=== PATIENT | male | born 1965 | race African-American/Black ===

== ENCOUNTER 2018-03-23 06:57 | Emergency (ER) | payer BC, OTHER ==
[2018-03-23 07:31] VITALS: BMI 27.4
[2018-03-23] MEDS ORDERED: IBUPROFEN 600 MG TABLET (FP) PO ONE ×2 (07:38→07:47)
[2018-03-23] MEDS ORDERED: POLYETHYLENE GLYCOL 3350 119 GM BTL PO ONE (07:38)
[2018-03-23] MEDS ORDERED: RANITIDINE HCL 150 MG TABLET (FP) PO ONE (07:51)
[2018-03-23] MEDS ORDERED: MAG HYDROX/AL HYDROX/SIMETH 30 ML UNIT-DOSE CUP PO ONE (07:51)
[2018-03-23] MEDS ORDERED: MAG HYDROX/AL HYDROX/SIMETH 30 ML UNIT-DOSE CUP ONE (07:54)
[2018-03-23] MEDS ORDERED: RANITIDINE HCL 150 MG TABLET (FP) ONE (07:54)
--- NOTE | 2018-03-23 07:56 | PDOC ---
History of Present Illness - General Chief Complaint: Back Pain Stated Complaint: BACK PAIN/BOWEL PROBLEMS Time Seen by Provider: 03/23/18 07:40 History Source: Patient Exam Limitations: No Limitations - History of Present Illness Initial Comments: 03/23/18 07:56 This is a 52 YOM with unremarkable PMH who p/w fluctuating low back pain, intermittent epigastric abdominal discomfort, constipation, and nausea worsening over the past 2 weeks. His back pain fluctuates and is worse at night , and is located along the entire low back (both sides and midline) and radiates around mildly to his RLQ and LLU. This pain improves when he has a larger bowel movement and worsens as time passes without BM. His last BM was very small and a bit liquidy and was this morning and brown-colored. He denies f /c, d/c, n/t/w, chest pain, SOB, headache, dizziness, or other symptoms. He has not taken medications for his symptoms for several days. He has not struggled significantly with constipation prior to the past two weeks. Past History - Past Medical History Allergies/Adverse Reactions: Allergies Allergy/AdvReac Type Severity Reaction Status Date / Time No Known Allergies Allergy Verified 03/23/18 07:31 Home Medications: Ambulatory Orders NK [No Known Home Medication] 03/28/15 COPD: No - Suicide/Smoking/Psychosocial Hx Smoking History: Current every day smoker Have you smoked in the past 12 months: Yes Number of Cigarettes Smoked Daily: 6 Information on smoking cessation initiated: No 'Breaking Loose' booklet given: 11/09/15 Hx Alcohol Use: No Drug/Substance Use Hx: No Substance Use Type: None *Physical Exam - Vital Signs Last Vital Signs Temp Pulse Resp BP Pulse Ox 98.4 F 88 18 108/66 99 03/23/18 07:28 03/23/18 07:28 03/23/18 07:28 03/23/18 07:28 03/23/18 07:28 GENERAL: nontoxic and well-appearing, nourished, A/Ox4, no acute distress, speaking in full sentences, answers questions appropriately, does not appear particularly uncomfortable HEENT: PERRLA, EOMI, moist mucous membranes, no posterior pharyngeal erythema, no tonsillar swelling or exudates, no cervical lymphadenopathy NECK: No midline ttp, no spinal stepoff or deformity, full ROM, supple CARDIOVASCULAR: Regular rate and rhythm, normal S1S2, MGR, radial and DP pulses 2+ and symmetric, capillary refill <2 seconds, extremities warm and well- perfused LUNGS/RESPIRATORY: No respiratory distress, normal and symmetric chest movements during respirations, lungs CTA bilaterally, equal breath sounds, no cyanosis, no nail clubbing GI/ABDOMEN: Normal symmetric appearance, normoactive bowel sounds, soft, no tenderness to palpation, no midline pulsatile masses, no palpated organomegaly : No CVA tenderness BACK: No midline ttp or stepoff or deformity of thoracic or lumbar spine EXTREMITIES: distal pulses 2+, warm and well-perfused, no LE edema SKIN: Warm and dry, no pallor, no jaundice, no bruising, no rash, no skin breakdown, no cuts, no lesions NEUROLOGICAL: GCS 15, CN II-XII grossly intact, ambulating with normal gait, moving all extremities, 5/5 strength proximally and distally, no facial droop, no decreased sensation Heart Score/ECG Review #1 SR rate of 82, normal axis and intervals, early repol in [id number], no ischemic ST-T changes ED Treatment Course - LABORATORY CBC & Chemistry Diagram: 03/23/18 07:58 03/23/18 07:58 - Medications Given in the ED: ED Medications Discontinued Medications Generic Name Dose Route Start Last Admin Trade Name Stalinq PRN Reason Stop Dose Admin Ibuprofen 600 mg 03/23/18 07:38 03/23/18 07:49 Motrin - PO 03/23/18 07:39 600 mg ONCE ONE Administration Medical Decision Making - Medical Decision Making 03/23/18 07:52 Pt presents with low back pain, abdominal discomfort, constipation, nausea all x2 weeks. Has seen his PCP Dr. Johnson about this and has not gotten relief with laxatives and one other medication he cannot remember. Initial Vital Signs Temp Pulse Resp BP Pulse Ox 98.4 F 88 18 108/66 99 03/23/18 07:28 03/23/18 07:28 03/23/18 07:28 03/23/18 07:28 03/23/18 07:28 Exam: As noted in Physical Exam section.Abdomen distended DDX IBNLT: SBO, constipation, gas, ascites, GI perforation, abdominal compartment syndrome, colitis or diverticulitis wwo rupture or abscess, toxic megacolon, appendicitis wwo rupture, pancreatitis wwo abscess/pseudocyst (MC cause gallstones and EtOH; also hypercalcemia, neoplasm, medications, ERCP complication, abdominal surgery/instrumentation, trauma, SBP (asmita. w/ h/o cirrhosis/EtOH), AAA/AD wwo rupture, ischemic colitis wwo perforation (embolism , bowel obstruction, inadequate systemic perfusion, medications, surgery- induced vascular compromise), etc. Orders placed at this time: Provider Orders Category Date Time Status EKG [ELECTROCARDIOGRAM] [CARD] Stat Cardiology 03/23/18 07:53 Ordered EKG needed NOW Care 03/23/18 07:53 Ordered CBC WITH DIFFERENTIAL Stat Lab 03/23/18 07:39 Ordered CMP [COMP METABOLIC PANEL] Stat Lab 03/23/18 07:42 Ordered TSH [THYROID STIMULATING HORMONE] Stat Lab 03/23/18 07:39 Ordered Ibuprofen [Motrin -] Medication 03/23/18 07:47 Discontinued 600 mg PO .STK-MED ONE Ibuprofen [Motrin -] Medication 03/23/18 07:38 Discontinued 600 mg PO ONCE ONE Mag Hydrox/Al Hydrox/Simeth [Mylanta Oral Suspension -] Medication 03/23/18 07 :51 Once 30 ml PO ONCE ONE Polyethylene Glycol 3350 [Miralax (For Daily Use) -] Medication 03/23/18 07: 38 Discontinued 17 gm PO ONCE ONE Ranitidine [Zantac -] Medication 03/23/18 07:51 Once 300 mg PO ONCE ONE Sodium Phosphate/Na Biphos [Fleet Adult Rectal Enema -] Medication 03/23/18 07 :38 Discontinued 133 ml OK ONCE ONE Medications Discontinued Medications Generic Name Dose Route Start Last Admin Trade Name Freq PRN Reason Stop Dose Admin Al Hydroxide/Mg Hydroxide 30 ml 03/23/18 07:51 Mylanta Oral Suspension - PO 03/23/18 07:52 ONCE ONE Ibuprofen 600 mg 03/23/18 07:38 03/23/18 07:49 Motrin - PO 03/23/18 07:39 600 mg ONCE ONE Administration Ibuprofen Confirm 03/23/18 07:47 Motrin - Administered 03/23/18 07:48 Dose 600 mg PO .STK-MED ONE Polyethylene Glycol 17 gm 03/23/18 07:38 Miralax (For Daily Use) - PO 03/23/18 07:39 ONCE ONE Ranitidine HCl 300 mg 03/23/18 07:51 Zantac - PO 03/23/18 07:52 ONCE ONE Sodium Phosphate 133 ml 03/23/18 07:38 Fleet Adult Rectal Enema - OK 03/23/18 07:39 ONCE ONE Abdomen XR: Non-obstructive bowel gas pattern, no significant stool burden. EKG: Reviewed; as noted in ECG section. Laboratory Tests 03/23/18 03/23/18 03/23/18 07:58 07:58 10:55 WBC 5.6 RBC 4.99 Hgb 14.9 Hct 44.1 MCV 88.2 MCH 29.7 MCHC 33.7 RDW 13.6 Plt Count 205 MPV 8.7 Absolute Neuts (auto) 3.9 Neutrophils % 70.9 Lymphocytes % 16.2 D Monocytes % 9.7 Eosinophils % 2.6 D Basophils % 0.6 Nucleated RBC % 0 Sodium 142 Potassium 4.3 Chloride 107 Carbon Dioxide 27 Anion Gap 8 BUN 14 Creatinine 1.2 Creat Clearance w eGFR > 60 Random Glucose 76 Calcium 9.4 Total Bilirubin 0.3 AST 12 L ALT 26 Alkaline Phosphatase 69 Total Protein 7.2 Albumin 3.8 TSH 1.09 Stool Occult Blood Negative Reassessment: Repeat abdominal exam benign. Patient states feels improved and comfortable going home with f/u early this week with PCP. Vital Signs Temperature 98.7 F 03/23/18 10:34 Pulse Rate 89 03/23/18 10:34 Respiratory Rate 16 03/23/18 10:34 Blood Pressure 106/75 03/23/18 10:34 O2 Sat by Pulse Oximetry (%) 98 03/23/18 10:34 03/23/18 10:40 This patient has gotten significant relief of symptoms while in the ED. On last reassessment, vitals are wnl, pain is reasonably controlled, and exam is benign. Workup is not concerning for emergency-level pathology at this time. This patient is appropriate for discharge with close outpatient follow up. The Pt is comfortable with this plan and will follow up with their primary care provider in 1-3 days. He will take Motrin and/or Tylenol for pain. Specific return precautions are discussed and they will come back to the ER if necessary. 03/24/18 11:01 *DC/Admit/Observation/Transfer Diagnosis at time of Disposition: Back pain Qualifiers: Back pain location: low back pain Chronicity: acute Back pain laterality: bilateral Sciatica presence: without sciatica Qualified Code(s): M54.5 - Low back pain Constipation Qualifiers: Constipation type: unspecified constipation type Qualified Code(s): K59.00 - Constipation, unspecified - Discharge Dispostion Disposition: HOME Condition at time of disposition: Stable Decision to Admit order: No - Referrals Referrals: Shirin Johnson MD [Primary Care Provider] - Siddhartha Mg DO [Staff Physician] - - Patient Instructions Printed Discharge Instructions: DI for Low Back Pain, DI for Constipation Additional Instructions: YOU WERE SEEN IN THE ER FOR BACK PAIN. WE DID LABORATORY WORK ON YOUR BLOOD, WELL IMAGING STUDIES, AND WE DID NOT FIND ANY CONCERNING ABNORMALITIES. YOUR SYMPTOMS IMPROVED TO A TOLERABLE LEVEL WITH THE MEDICATIONS WE GAVE YOU IN THE ER. AFTER OUR ASSESSMENT, WE DO NOT BELIEVE YOU ARE HAVING A MEDICAL EMERGENCY AT THIS TIME, AND WE BELIEVE YOU ARE SAFE TO GO HOME. PLEASE FOLLOW UP WITH YOUR PRIMARY CARE PROVIDER IN 1-3 DAYS. CALL THEIR CLINIC SOON POSSIBLE, TELL THEM YOU WERE SEEN IN THE ER, AND TELL THEM YOU NEED AN APPOINTMENT. IF YOU HAVE ANY NEW OR WORSENING SYMPTOMS PLEASE COME BACK TO THE ER AT ANY TIME ( 24 HOURS A DAY), ESPECIALLY FOR FEVER, NEW NUMBNESS NEW TINGLING, NEW WEAKNESS, NEW URINARY OR BOWEL INCONTINENCE OR RETENTION, RECTAL BLEEDING, OR OTHER NEW SYMPTOMS. IF YOU ARE HAVING SEVERE OR LIFE THREATENING SYMPTOMS, OR SYMPTOMS THAT MAKE IT UNSAFE TO DRIVE OR HAVE SOMEONE DRIVE YOU, PLEASE CALL 911. FOR PAIN CONTROL BY ALTERNATING [id number] MEDICINES, DO THE FOLLOWING: At hour 0, take Tylenol 650 mg (two regular strength pills) At hour 3, take ibuprofen 600 mg (three regular strength pills) At hour 6, take Tylenol 650 mg (two regular strength pills) At hour 9, take ibuprofen 600 mg (three regular strength pills) Etc. ALSO PLEASE DO TAKE THE LAXATIVES IF YOU ARE NOT HAVING SUFFICIENT BOWEL MOVEMENTS. PLEASE TRY A TRIAL OF [id number] PRILOSEC BECAUSE IT ALSO SOUNDS LIKE YOU HAVE ACID REFLUX. TAKE A 20 MG PRILOSEC (OMEPRAZOLE) ONCE A DAY, AT THE SAME TIME EVERY DAY, 30 MINUTES BEFORE A MEAL. - Post Discharge Activity
[2018-03-23] MEDS: SODIUM PHOSPHATE/NA BIPHOS 133 ML ENEMA PR ONE ×2 (08:11→08:25)
[2018-03-23 08:16] LABS: BASO % 0.6 % (0-2.0); EOS % 2.6 % (0-4.5); HEMATOCRIT 44.1 % (35.4-49); HEMOGLOBIN 14.9 GM/dL (11.7-16.9); LYMPH % 16.2 % (8-40); MCH 29.7 pg (25.7-33.7); MCHC 33.7 g/dl (32.0-35.9); MEAN CELL VOLUME 88.2 fl (80-96); MEAN PLT VOLUME 8.7 fl (7.5-11.1); MONO % 9.7 % (3.8-10.2); NEUT % 70.9 % (42.8-82.8); PLATELET COUNT 205 K/MM3 (134-434); RBC 4.99 M/mm3 (4.00-5.60); RDW 13.6 % (11.9-15.9); WHITE BLOOD COUNT 5.6 K/mm3 (4.0-10.0)
[2018-03-23] MEDS ORDERED: MAGNESIUM CITRATE 300 ML BOTTLE PO ONE (08:24)
[2018-03-23] MEDS ORDERED: MAGNESIUM CITRATE 300 ML BOTTLE ONE (08:33)
[2018-03-23 08:41] LABS: ALBUMIN 3.8 g/dl (3.4-5.0); ALK PHOS 69 U/L (45-117); ANION GAP 8 MMOL/L (8-16); BILIRUBIN,TOTAL 0.3 mg/dL (0.2-1); BLOOD UREA NITROGEN 14 mg/dL (7-18); CALCIUM 9.4 mg/dL (8.5-10.1); CHLORIDE 107 mmol/L (98-107); CO2 27 mmol/L (21-32); CREATININE 1.2 mg/dL (0.55-1.3); GLUCOSE,RANDOM 76 mg/dL (74-106); POTASSIUM 4.3 mmol/L (3.5-5.1); SGOT/AST 12 U/L (15-37); SGPT/ALT 26 U/L (13-61); SODIUM 142 mmol/L (136-145); TOT PROT 7.2 g/dl (6.4-8.2)
[2018-03-23 10:35] VITALS: BP 106/75; PULSE 89; TEMP 98.7
--- NOTE | 2018-03-23 17:00 | EKG ---
Test Reason : Blood Pressure : / mmHG Vent. Rate : 082 BPM Atrial Rate : 082 BPM P-R Int : 132 ms QRS Dur : 096 ms QT Int : 356 ms P-R-T Axes : 067 062 044 degrees QTc Int : 415 ms NORMAL SINUS RHYTHM MINIMAL VOLTAGE CRITERIA FOR LVH, MAY BE NORMAL VARIANT BORDERLINE ECG WHEN COMPARED WITH ECG OF 13-AUG-2014 12:57, NO SIGNIFICANT CHANGE WAS FOUND Confirmed by MD tOto, Guru ([id number]) on 03/23/2018 5:00:02 PM Referred By: Confirmed By:Guru Menjivar MD
== END 2018-03-23 10:36 | disposition home or self-care (01) ==
LOC: JER 06:57
DX: K59.00 Constipation, unspecified (principal); F17.210 Nicotine dependence, cigarettes, uncomplicated
CPT/HCPCS: 36415; 74021-TC-FY; 80053; 82272; 84443; 85025; 93005; 93010; 99283-25

== ENCOUNTER 2021-03-10 10:01 | Emergency (ER) | payer BC, OTHER ==
[2021-03-10 10:07] VITALS: BP 115/85; PULSE 100; TEMP 98.8; BMI 58.6
[2021-03-10] MEDS ORDERED: SODIUM CHLORIDE 0.9% 500 ML INFUS.BAG IV ONE (11:35)
[2021-03-10] MEDS ORDERED: ACETAMINOPHEN 1000 MG/100 ML VIAL (NON FORMULARY) IVPB ONE (11:35)
[2021-03-10] MEDS ORDERED: ACETAMINOPHEN INJECTION 100 ML IVPB ONE (12:02)
[2021-03-10] MEDS ORDERED: MAG HYDROX/AL HYDROX/SIMETH 30 ML UNIT-DOSE CUP PO ONE (14:01)
[2021-03-10 14:02] LABS: BASO % 1.1 % (0-2.0); EOS % 0.9 % (0-4.5); HEMATOCRIT 43.5 % (35.4-49); HEMOGLOBIN 15.2 GM/dL (11.7-16.9); LYMPH % 33.5 % (8-40); MCH 30.3 pg (25.7-33.7); MCHC 34.9 g/dl (32.0-35.9); MEAN CELL VOLUME 86.9 fl (80-96); MEAN PLT VOLUME 8.7 fl (7.5-11.1); MONO % 9.8 % (3.8-10.2); NEUT % 54.7 % (42.8-82.8); PLATELET COUNT 293 10^3/uL (134-434); RBC 5.01 M/mm3 (4.00-5.60); RDW 13.2 % (11.9-15.9); WHITE BLOOD COUNT 4.9 K/mm3 (4.0-10.0)
[2021-03-10] MEDS ORDERED: FAMOTIDINE 10 MG TABLET PO ONE (14:02)
[2021-03-10 14:13] LABS: CHLORIDE 102 mmol/L (98-107); SODIUM 135 mmol/L (136-145)
[2021-03-10 14:15] LABS: ALBUMIN 4.1 g/dl (3.4-5.0); ANION GAP 5 MMOL/L (8-16); BLOOD UREA NITROGEN 12.8 mg/dL (7-18); CALCIUM 9.1 mg/dL (8.5-10.1); CO2 28 mmol/L (21-32); GLUCOSE,RANDOM 84 mg/dL (74-106); LIPASE 82 U/L (73-393)
[2021-03-10 14:18] LABS: SGOT/AST 16 U/L (15-37); SGPT/ALT 39 U/L (13-61)
[2021-03-10 14:20] LABS: BILIRUBIN,TOTAL 0.6 mg/dL (0.2-1); TOT PROT 8.3 g/dl (6.4-8.2)
[2021-03-10 14:21] LABS: ALK PHOS 73 U/L (45-117)
[2021-03-10] MEDS ORDERED: MAG HYDROX/AL HYDROX/SIMETH 30 ML UNIT-DOSE CUP ONE (14:49)
[2021-03-10] MEDS ORDERED: FAMOTIDINE 10 MG TABLET ONE (14:49)
[2021-03-10 15:17] LABS: PH,URINE 5.5 (5.0-8.0); URINE APPEARANCE CLEAR; URINE BILIRUBIN NEGATIVE (NEGATIVE); URINE COLOR YELLOW; URINE GLUCOSE (UA) NEGATIVE (NEGATIVE); URINE KETONE 1+ (NEGATIVE); URINE LEUK ESTERASE NEGATIVE (NEGATIVE); URINE NITRITE NEGATIVE (NEGATIVE); URINE PROTEIN NEGATIVE (NEGATIVE)
== END 2021-03-10 18:10 | disposition left against medical advice (07) ==
LOC: JER 10:01
PROC: 3E033NZ Introduction of Analgesics, Hypnotics, Sedatives into Peripheral Vein, Percutaneous Approach (ICD-10-PCS; principal; 2021-03-10)
DX: K59.00 Constipation, unspecified (principal); R10.33 Periumbilical pain
CPT/HCPCS: 36415; 76705-TC; 80053; 81003; 82550; 82553; 83690; 84484; 85025; 87086; 93005; 93010; 99285-25; J0131